=== PATIENT | male | born 1985 | race Two or more races ===

== ENCOUNTER → 2024-12-03 | Outpatient (CLI) | payer MEDICAID, SELFPAY ==
--- NOTE | 2024-12-03 14:26 | XR_ITS ---
Examination: Hand, right 3 views Technique: Hand AP, oblique, lateral 3 views Date and time of exam: December 03, 2024 1345 hours INDICATIONS: Injury to the hand October 28, 2024, fractures FINDINGS: Comminuted fractures proximal phalanx third digit with displacement fracture fragments I do not have prior films for comparison Metacarpals intact IMPRESSION: Comminuted fractures, subacute proximal phalanx third digit
--- NOTE | 2024-12-03 14:26 | XR_ITS ---
Examination: Wrist, right 3 views Technique: Wrist AP, oblique, lateral 3 views Date and time of exam: December 03, 2024 1445 hours INDICATIONS: Hand fracture October 28, 2024, wrist pain FINDINGS: Angulation of the cortex at the base of the fifth metacarpal No dislocation No opaque foreign body IMPRESSION: Subtle angulation at the base of the fifth metacarpal, clinical correlation advised
== END | disposition home or self-care (01) ==
LOC: CDIM 14:04
PROVIDERS: PCP Family Medicine
DX: S62.612A Displaced fracture of proximal phalanx of right middle finger, initial encounter for closed fracture (principal); X58.XXXA Exposure to other specified factors, initial encounter
CPT/HCPCS: 73110; 73130

== ENCOUNTER → 2025-01-01 | Outpatient (CLI) | payer MEDICAID, SELFPAY ==
--- NOTE | 2025-01-01 15:37 | XR_ITS ---
Examination: Wrist, right 3 views Technique: Wrist AP, oblique, lateral 3 views Date and time of exam: January 01, 2025 1541 hours INDICATIONS: Acute fractures proximal phalanx third digit December 03, 2024, subtle angulation base of the fifth metacarpal on the wrist study December 03, 2024 FINDINGS: No acute fracture of the fifth metacarpal is depicted Radius ulna carpal bones intact IMPRESSION: No acute wrist fracture
--- NOTE | 2025-01-01 15:37 | XR_ITS ---
Examination: Hand, right 3 views Technique: Hand AP, oblique, lateral 3 views Date and time of exam: January 01, 2025 1451 hours Comparison December 03, 2024 INDICATIONS: Comminuted fracture proximal phalanx third digit December 03, 2024, postop reduction internal fixation FINDINGS: Operative reduction internal fixation comminuted fracture proximal phalanx third digit Adequate alignment of the main fracture fragments IMPRESSION: Operative reduction internal fixation comminuted fractures proximal phalanx third digit
== END | disposition home or self-care (01) ==
PROVIDERS: PCP Surgery; Referring Provider Surgery; Visit Provider Surgery
DX: S62.612A Displaced fracture of proximal phalanx of right middle finger, initial encounter for closed fracture (principal); X58.XXXA Exposure to other specified factors, initial encounter
CPT/HCPCS: 73110; 73130